=== PATIENT | female | born 1960 | race Two or more races ===

== ENCOUNTER 2020-11-12 08:44 | Outpatient (CLI) | payer OTHER | END 2020-11-12 09:00 | disposition home or self-care (01) | LOC: TOM 08:44 | PROVIDERS: ATTEND Specialist | DX: K57.92 Diverticulitis of intestine, part unspecified, without perforation or abscess without bleeding (principal) ==

== ENCOUNTER 2021-12-03 11:00 | Outpatient (CLI) | payer OTHER | END 2021-12-03 11:18 | disposition home or self-care (01) | LOC: TOM 11:00 | PROVIDERS: ATTEND Physical Medicine & Rehabilitation | DX: M54.59 Other low back pain (principal) ==

== ENCOUNTER 2021-12-21 14:30 | Outpatient (CLI) | payer OTHER | END 2021-12-21 14:44 | disposition home or self-care (01) | LOC: RAD 14:30 | PROVIDERS: ATTEND Physical Medicine & Rehabilitation | DX: M25.562 Pain in left knee (principal) ==